=== PATIENT | male | born 1995 | race Two or more races ===

== ENCOUNTER 2024-03-03 09:44 | Emergency (ER) | payer OTHER ==
[~2024-03-03] VITALS: Ht 182.9 cm; Wt 126.1 kg
[2024-03-03] MEDS ORDERED: ONDANSETRON 4 MG TAB.RAPDIS ONE (11:23)
[2024-03-03] MEDS: ONDANSETRON 4 MG TAB.RAPDIS SL ONE (11:31)
[2024-03-03 11:34] VITALS: BP 153/106; TEMP 98.2; O2SAT 98
== END 2024-03-03 11:34 | disposition home or self-care (01) ==
LOC: EDSEX 09:44 → ER 10:05
DX: R11.10 Vomiting, unspecified (principal)
CPT/HCPCS: 99283; 82962; Q0162